=== PATIENT | male | born 1985 | race Caucasian/White ===

== ENCOUNTER 2018-08-29 21:52 | Emergency (ER) | payer MEDICAID, SELFPAY ==
[2018-08-29 21:57] VITALS: BP 169/81; PULSE 83; RESP 18; TEMP 36.3; O2SAT 97
[2018-08-29 22:13] LABS: Bilirubin Negative (Negative); Blood Negative (Negative); Clarity Clear; Glucose Negative (Negative); Ketones Negative (Negative); Leukocyte Esterase Negative (Negative); Nitrite Negative (Negative); Specific Gravity 1.025 (1.005-1.025); Urobilinogen 0.2 EU/dL (Up TO 0.2)
--- NOTE | 2018-08-29 22:46 | W.ED.GENAD ---
Discharge Plan Disposition Patient Disposition: HOME Condition: Stable Discharge Details Chief Complaint: Urinary Clinical Impression: Urinary frequency Primary Care Provider: None,None ED Provider: Derrick Beyer Discharge Instructions Instructions: Dysuria (ED) Additional Instructions: If you begin having fever chills, nausea vomiting, severe flank pain return to the emergency department for reassessment. Otherwise we will call you with the remaining results if they are positive. It is encouraged that you establish a primary care provider for reassessment of your condition especially if you are not improving over the next week Referrals: Primary Care Provider [Outside] Discharge Data Discharge Date/Time-TO BE ENTERED AT DEPARTURE: 08/29/18 23:00 Medical Decision Making Patient presenting to the emergency department for chief complaint of urinary frequency. Patient states that this is been going on for the past 2-3 days. Patient denies any pain, genital rash or lesions, flank pain, nausea vomiting diarrhea, fever chills. Patient does state large intake of caffeine but denies any change in that intake. Patient does state that he has a steady significant other that he is lived with for the past year. He denies any anal sex or exposure to STD. Physical exam is unremarkable and shows no physical exam findings. Of notation is patient was slightly hypertensive in the emergency department but otherwise unremarkable exam. field staff initiated protocol for urinalysis which was reviewed and again is unremarkable. Given urinary frequency without extreme thirst stated by the patient I did have fingerstick glucose checked which was also within normal limits. Patient agreed to GC chlamydia testing via urinalysis but without any discharge pain or discomfort or anything do not feel that empiric treatment is needed or required at this time but only with positive result. Patient was informed his blood pressure was elevated and that he should establish a primary care provider for that along with recheck of his urinary frequency. Patient refused assistance from care management to establish primary care provider so he was given information for community connections. Otherwise given that patient displays no symptoms of emergent illness that would correlate with his urinary frequency I feel the patient is able to be safely discharged with return precautions thoroughly discussed. After discussion of diagnosis and plan of care patient has no further needs, questions, or concerns and states clear understanding to return to the emergency department for any worsening symptoms. HPI General Mode of arrival: ambulatory. Date/Time Provider Initiated Documentation: 08/29/18 22:20. Limitations to Documentation: no limitations. Information obtained by: RN notes reviewed. History of Present Illness 32 year old M presents to the emergency department with the chief complaint of Urinary frequency, Quality is described as other (Denies pain), Patient started experiencing this day(s) (3) and it has been constant. No relieving factors improve symptom(s), No exacerbating factors reported . Patient notes no other symptoms.. Patient did receive the following treatments prior to arrival, none Related Data Allergies Allergy/AdvReac Type Severity Reaction Status Date / Time No Known Allergies Allergy Unverified 08/29/18 21:59 General Stated Complaint: Urinary GENESIS: 4 Review of Systems Constitutional Denies body ache(s), Denies chills, Denies fever(s), Denies malaise and Denies weakness Cardiovascular Denies chest pain Respiratory Denies cough Gastrointestinal Denies abdominal pain, Denies nausea and Denies vomiting Genitourinary Reports as per HPI, Denies hematuria, Denies difficulty urinating, Denies genital lesions, Denies dysuria, Denies penile discharge, Denies testicular mass, Denies testicular pain, Reports urinary frequency, Denies urinary hesitancy, Denies urinary incontinence, Reports urinary urgency and Reports other (Change in urine color) Neurologic Denies confusion and Denies weakness Psychiatric Denies confusion [facility] Social History Smoking and Tabacco status: Current, status unknown Exam Const General: cooperative and no acute distress Orientation: alert, awake and oriented x3 Resp Effort & Inspection: normal respiratory effort and able to speak in complete sentences Auscultation: clear to auscultation bilaterally Cardio Rate: regular rate Rhythm: regular rhythm Heart Sounds: S1 normal and S2 normal GI Palpation: nontender Male General Exam: Yes normal external exam Penis: normal penis Meatus: meatus normal and no meatla discharge Scrotum: scrotum normal Testes: normal, testicular lie normal and epididymides normal Back/Spine/Pelvis Back: no CVA tenderness Neuro General: alert, awake and oriented x3 Extrem General: normal capillary refill Course Vital Signs Temperature 36.3 C L 08/29/18 21:57 Pulse 83 08/29/18 21:57 Respiratory Rate 18 08/29/18 21:57 Blood Pressure 169/81 H 08/29/18 21:57 Pulse Oximetry 97 08/29/18 21:57 Temperature 36.3 C L 08/29/18 21:57 Pulse 83 08/29/18 21:57 Respiratory Rate 18 08/29/18 21:57 Blood Pressure 169/81 H 08/29/18 21:57 Pulse Oximetry 97 08/29/18 21:57 Oxygen Delivery Method Room Air 08/29/18 21:57 Oxygen Flow Rate 0 08/29/18 21:57 Pain Level 0 08/29/18 21:57 Lab/Test Results Lab/Test Results: Laboratory Tests Range/Units 08/29/18 22:05 Urine Color (Yellow) Yellow Urine Clarity Clear Urine pH (5-8) 6.0 Ur Specific [place] (1.005-1.025) 1.025 Urine Protein (Negative) mg/dL Negative Urine Ketones (Negative) mg/dL Negative Urine Blood (Negative) Negative Urine Nitrite (Negative) Negative Urine Bilirubin (Negative) Negative Urine Urobilinogen (Up TO 0.2) EU/dL 0.2 Ur Leukocyte Esterase (Negative) Negative Urine Glucose (Negative) mg/dL Negative
[2018-09-02 13:57] LABS: Chlamydia Result Negative; GC Result Negative
== END 2018-08-29 23:00 | disposition home or self-care (01) ==
PROVIDERS: Emergency Provider Nurse Practitioner Family
DX: R35.0 Frequency of micturition (principal)
CPT/HCPCS: 36416; 82962; 87491; 87591; 99282; 81003